=== PATIENT | female | born 1950 | race Caucasian/White ===

== ENCOUNTER 2017-03-12 12:13 | Emergency (ER) | payer BC, MEDICARE ==
[2017-03-12 12:46] VITALS: BP 119/49
--- NOTE | 2017-03-12 13:26 | RAD ---
INDICATION: Sewing needle versus distal left middle finger COMPARISON: None. TECHNIQUE: 3 views of the left middle finger were obtained. FINDINGS: There is no radiopaque subcutaneous foreign body. The bones are normal alignment. Joint spaces appear maintained. No fracture is seen. IMPRESSION: NORMAL RADIOGRAPH WITHOUT IDENTIFICATION OF SUBCUTANEOUS FOREIGN BODY.
--- NOTE | 2017-03-12 13:41 | UC ---
Barb Reyes Emily, scribed for Keegan Vincent MD on 03/12/17 at 1320 . Hand/Wrist HPI - HPI Summary HPI Summary: This patient is a 66 year old F presenting to urgent care with a chief complaint of puncture to L middle finger that occurred earlier today. Pt reports a sewing machine needle going through L middle finger. 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 Symptoms aggravated by nothing. Symptoms alleviated by nothing. Pt reports being R hand dominant. - History Of Current Complaint Chief Complaint: UCLaceration Stated Complaint: NEEDLE IN TIP OF FINGER Time Seen by Provider: 03/12/17 13:11 Hx Obtained From: Patient ?: No Onset/Duration: Sudden Onset, Lasting Hours, Still Present Severity Initially: Mild Severity Currently: Mild Aggravating Factor(s): Other - Nothing Alleviating Factor(s): Nothing Associated Signs And Symptoms: Negative: Fever Related History: Dominant Hand Right - Allergies/Home Medications Allergies/Adverse Reactions: Allergies Allergy/AdvReac Type Severity Reaction Status Date / Time No Known Allergies Allergy Verified 03/12/17 12:46 PMH/Surg Hx/FS Hx/Imm Hx Previously Healthy: Yes Cardiovascular History: Other Other Cardiovascular History: Negative Respiratory History: Other Other Respiratory History: Negative - Surgical History Surgical History: Yes Surgery Procedure, Year, and Place: wisdom teeth extraction - Family History Known Family History: Positive: Other Family History: Breast CA - Social History Occupation: Retired Lives: Alone Alcohol Use: Weekly Substance Use Type: None Smoking Status (MU): Never Smoked Tobacco - Immunization History Most Recent Influenza Vaccination: none Most Recent Tetanus Shot: thinks up to date. Review of Systems Constitutional: Other - Negative fever Skin: Other - Positive puncture to L middle finger All Other Systems Reviewed And Are Negative: Yes Physical Exam Triage Information Reviewed: Yes Vital Signs: Initial Vital Signs Temp 98.3 F 03/12/17 12:40 Pulse 66 03/12/17 12:40 Resp 16 03/12/17 12:40 BP 119/49 03/12/17 12:40 Pulse Ox 99 03/12/17 12:40 Diagnostics - Radiology Finger XR Radiology Interpretation Completed By: Radiologist - Finger XR reveals, per radiologist, normal radiograph without identification of subcutaneous foreign body. ED physician has reviewed this radiology report. Hand/Wrist Course/Dx - Course Course Of Treatment: DISCUSSED ABX WITH PATIENT; SHE DECLINES ABX AT THIS TIME. SHE REPORTS TD UTD. DISCUSSED X-RAY RESULTS WITH THE PATIENT. REEVAL IF WORSE. - Differential Dx/Diagnosis Provider Diagnoses: PUNCTURE WOUND LEFT MIDDLE FINGER Discharge - Discharge Plan Condition: Stable Disposition: HOME Patient Education Materials: Puncture Wound (ED) Referrals: Vandana Mota MD [Primary Care Provider] - Additional Instructions: FOLLOW UP WITH YOUR DOCTOR. GET RECHECKED FOR ANY WORSENING OF YOUR CONDITION; SIGNS OF INFECTION OR QUESTIONS OR CONCERNS. The documentation as recorded by the [place] Emily accurately reflects the service I personally performed and the decisions made by me, Keegan Vincent MD.
== END 2017-03-12 13:49 | disposition home or self-care (01) ==
LOC: UCEAST 12:13
DX: S61.233A Puncture wound without foreign body of left middle finger without damage to nail, initial encounter (principal); W27.3XXA Contact with needle (sewing), initial encounter; Y93.9 Activity, unspecified; Y92.9 Unspecified place or not applicable
CPT/HCPCS: 73140; 99211; G0463